=== PATIENT | male | born 1955 | race Asian ===

== ENCOUNTER 2024-05-11 14:11 | Inpatient (IN) | payer MEDICARE, OTHER ==
[~2024-05-11] VITALS: Ht 160 cm; Wt 68.3 kg
[2024-05-11] MEDS: LIDOCAINE 2% JELLY 11ml (GLYDO) ONE (14:30)
[2024-05-11] MEDS: LIDOCAINE 2% JELLY 11ml (GLYDO) UR ONE (14:30)
[2024-05-11 15:31] LABS: Basophils # (auto) 0 10 ^3/uL (0-0.2); Basophils % (auto) 0.5 % (0.0-2.0); Eosinophils # (auto) 0.1 10 ^3/uL (0-0.8); Hemoglobin 14.7 g/dL (13.5-17.5); Monocytes # (auto) 0.7 10 ^3/uL (0-1.3); Neutrophils # (auto) 8.1 10 ^3/uL (1.6-8.6); Nucleated Red Blood Cells % 0.1 %; White Blood Cell 9.9 10^3/uL (4.4-10.8)
[2024-05-11 15:33] LABS: Eosinophils % (auto) 0.6 % (0.0-7.0); Hematocrit 40.8 % (41.0-53.0); Lymphocytes % (auto) 9.8 % (10.0-50.0); Mean Corpuscular Hemoglobin 35.1 pg (28.0-32.0); Mean Corpuscular Hgb Conc. 36.1 g/dL (32.0-36.0); Mean Corpuscular Volume 97.3 fL (80.0-100.0); Monocytes % (auto) 7.3 % (0.0-12.0); Neutrophils % (auto) 81.8 % (37.0-80.0); Platelet Count (auto) 188 10^3/uL (140-450); Red Blood Cells 4.19 10^6/uL (4.5-5.90)
[2024-05-11 15:45] VITALS: PULSE 65; RESP 16; O2SAT 98
[2024-05-11] MEDS: ONDANSETRON HCL 4 MG/2 ML VIAL IV ONE (15:50)
[2024-05-11] MEDS: MORPHINE SULFATE 4 MG/ML SYR/VIAL IV ONE (15:51)
[2024-05-11 16:00] LABS: Alanine Aminotransferase 36 U/L (7-40); Albumin 4.2 g/dL (3.2-4.8); Alkaline Phosphatase 66 U/L (46-116); Anion Gap 8 (5-15); Aspartate Aminotransferase 28 U/L (13-40); BUN/Creatinine Ratio 11.9 (10.0-20.0); Blood Urea Nitrogen 13 mg/dL (9-23); Calcium 9.3 mg/dL (8.7-10.4); Carbon Dioxide 24 mmol/L (20-30); Chloride 106 mmol/L (98-107); Glucose 167 mg/dL (74-106); Lipase 45 U/L (12-53); Potassium 3.8 mmol/L (3.5-5.1); Sodium 138 mmol/L (136-145)
[2024-05-11 16:01] LABS: Bilirubin, Total 0.6 mg/dL (0.2-1.0); Total Protein 6.8 g/dL (5.7-8.2)
[2024-05-11] MEDS ORDERED: LEVOTAB51 PO (17:59)
[2024-05-11] MEDS ORDERED: PANT40T PO (17:59)
[2024-05-11] MEDS ORDERED: OLME20TA67 PO (17:59)
[2024-05-11] MEDS ORDERED: METF-1145 PO (17:59)
[2024-05-11] MEDS ORDERED: CYCL0.058 EACHEYE (17:59)
[2024-05-11] MEDS ORDERED: TRIO1TP TOP (17:59)
[2024-05-11] MEDS ORDERED: ATOR20TA50 PO (17:59)
[2024-05-11] MEDS ORDERED: FLUT50SP NAS (17:59)
[2024-05-11] MEDS ORDERED: KETOROLAC TROMETH 30 MG/ML 1ML VIAL IV PRN (18:00)
[2024-05-11] MEDS ORDERED: HYDROcodone-ACET 5/325MG TAB PO PRN (18:00)
[2024-05-11] MEDS ORDERED: ACETAMINOPHEN 325 MG TAB PO PRN (18:00)
[2024-05-11 19:05] LABS: Urine Bacteria None Seen /hpf (None Seen)
[2024-05-11 19:16] LABS: Urine Blood 1+ /uL (Negative); Urine Clarity Clear (Clear); Urine Color Light-Yellow (Yellow); Urine Mucus FEW (None Seen); Urine Protein, UAD TRACE (Negative); Urine Specific Gravity 1.021 (1.001-1.035); Urine Urobilinogen Normal (Negative); Urine WBC 6 /hpf (0 - 3)
[2024-05-11] MEDS: SODIUM CHLORIDE 0.9% 2,000 ML IV ONE (19:44)
[2024-05-11] MEDS: TAMSULOSIN HYDROCHLORIDE 0.4 MG CAP PO ONE (19:45)
[2024-05-11] MEDS: KETOROLAC TROMETH 30 MG/ML 1ML VIAL IV ONE (19:45)
[2024-05-11] MEDS: TAMSULOSIN HYDROCHLORIDE 0.4 MG CAP PO SCH (19:47)
[2024-05-11] MEDS: SODIUM CHLORIDE 0.9% 1,000 ML IV SCH (21:54)
[2024-05-11] MEDS: HEPARIN SODIUM (PORCINE) 5000 UNITS/ML 1ML VIAL SC SCH (22:11)
[2024-05-11 23:00] VITALS: BP 125/57; PULSE 65; RESP 17; TEMP 97.6; O2SAT 95
[2024-05-11 23:15] VITALS: RESP 17
[2024-05-12] VITALS (9 sets, daily range): BP systolic 116–148; BP diastolic 56–80; PULSE 65–80; RESP 15–18; TEMP 97.6–98.8; O2SAT 94–97
[2024-05-12 06:58] LABS: Basophils # (auto) 0 10 ^3/uL (0-0.2); Eosinophils # (auto) 0 10 ^3/uL (0-0.8); Lymphocytes # (auto) 0.6 10 ^3/uL (0.4-5.4); Mean Corpuscular Hemoglobin 34.7 pg (28.0-32.0); Monocytes # (auto) 0.8 10 ^3/uL (0-1.3)
[2024-05-12 07:00] LABS: Basophils % (auto) 0.3 % (0.0-2.0); Eosinophils % (auto) 0.3 % (0.0-7.0); Hemoglobin 13.8 g/dL (13.5-17.5); Lymphocytes % (auto) 7.6 % (10.0-50.0); Mean Corpuscular Hgb Conc. 35.5 g/dL (32.0-36.0); Mean Corpuscular Volume 97.6 fL (80.0-100.0); Monocytes % (auto) 10.4 % (0.0-12.0); Neutrophils # (auto) 6.3 10 ^3/uL (1.6-8.6); Neutrophils % (auto) 81.4 % (37.0-80.0); Platelet Count (auto) 173 10^3/uL (140-450); Red Blood Cells 3.99 10^6/uL (4.5-5.90); Red Cell Distribution Width 13.1 % (11.8-14.3); White Blood Cell 7.7 10^3/uL (4.4-10.8)
[2024-05-12 07:26] LABS: Alanine Aminotransferase 26 U/L (7-40); Albumin 3.6 g/dL (3.2-4.8); Alkaline Phosphatase 60 U/L (46-116); Anion Gap 9 (5-15); Aspartate Aminotransferase 23 U/L (13-40); BUN/Creatinine Ratio 10.5 (10.0-20.0); Bilirubin, Total 0.9 mg/dL (0.2-1.0); Blood Urea Nitrogen 14 mg/dL (9-23); Calcium 8.5 mg/dL (8.7-10.4); Carbon Dioxide 22 mmol/L (20-30); Chloride 109 mmol/L (98-107); Glucose 173 mg/dL (74-106); Potassium 3.8 mmol/L (3.5-5.1); Sodium 140 mmol/L (136-145)
[2024-05-12 07:27] LABS: Total Protein 5.7 g/dL (5.7-8.2)
[2024-05-12] MEDS: LEVOCETIRIZINE HYDROCHLORIDE 5 MG PO SCH (10:00)
[2024-05-12] MEDS: ATORVASTATIN 20 MG TAB PO SCH (10:28)
[2024-05-12] MEDS: LOSARTAN POTASSIUM 50 MG TAB PO SCH (10:28)
[2024-05-12] MEDS: PANTOPRAZOLE 40 MG TAB PO SCH (10:29)
[2024-05-12] MEDS: cefTRIAXone 1GM/50ML D5W 50 ML IV ONE (14:02)
[2024-05-12 16:57] LABS: Partial Thromboplastin Time 28.2 SEC (24.5-34.5); Prothrombin Time 10.6 sec (9.3-11.8)
[2024-05-12] MEDS: MANNITOL FTV 25% 12.5 GM/50 ML 50 ML IV ONE (20:54)
[2024-05-13] VITALS (8 sets, daily range): BP systolic 120–149; BP diastolic 60–70; PULSE 52–113; RESP 16–18; TEMP 97.7–98.2; O2SAT 94–97
[2024-05-13 07:39] LABS: Anion Gap 7 (5-15); Carbon Dioxide 25 mmol/L (20-30); Chloride 112 mmol/L (98-107); Sodium 144 mmol/L (136-145)
[2024-05-13 07:45] LABS: BUN/Creatinine Ratio 8.5 (10.0-20.0); Blood Urea Nitrogen 10 mg/dL (9-23); Glucose 140 mg/dL (74-106)
[2024-05-13] MEDS: cefTRIAXone 1GM/50ML D5W 50 ML IV SCH (10:42)
[2024-05-13] MEDS: MANNITOL FTV 25% 12.5 GM/50 ML 50 ML IV ONE (18:10)
[2024-05-14] VITALS (8 sets, daily range): BP systolic 122–142; BP diastolic 56–82; PULSE 65–76; RESP 16–20; TEMP 97.5–98.2; O2SAT 94–97
[2024-05-15] VITALS (9 sets, daily range): BP systolic 129–143; BP diastolic 65–86; PULSE 63–83; RESP 13–19; TEMP 97.7–98.7; O2SAT 95–100
[2024-05-15 11:44] LABS: Chloride 112 mmol/L (98-107); Potassium 3.8 mmol/L (3.5-5.1); Sodium 143 mmol/L (136-145)
[2024-05-15 11:45] LABS: Anion Gap 6 (5-15); Carbon Dioxide 25 mmol/L (20-31)
[2024-05-15 11:46] LABS: Calcium 9.1 mg/dL (8.7-10.4)
[2024-05-15 11:50] LABS: BUN/Creatinine Ratio 6.7 (10.0-20.0); Blood Urea Nitrogen 6 mg/dL (9-23); Glucose 126 mg/dL (74-106)
[2024-05-15] MEDS ORDERED: PROPOFOL 10 MG/ML 20 ML IV ONE (14:09)
[2024-05-15] MEDS ORDERED: ceFAZolin 2 GM/D5W100ml 100 ML IV ONE (14:49)
[2024-05-15] MEDS ORDERED: MIDAZOLAM HCL 2MG/2ML 2ml VIAL (1mg/ml) ONE (17:11)
[2024-05-15] MEDS ORDERED: fentaNYL CITRATE 100 MCG/2 ML VL ONE (17:11)
[2024-05-15] MEDS ORDERED: ONDANSETRON HCL 4 MG/2 ML VIAL ONE (17:12)
[2024-05-15] MEDS ORDERED: LIDOCAINE 2% (LOCAL ANESTH.) PF 5ml SDV ONE (17:12)
[2024-05-15] MEDS ORDERED: MANNITOL FTV 25% 12.5 GM/50 ML 50 ML IV ONE (17:45)
[2024-05-15] MEDS ORDERED: ONDANSETRON HCL 4 MG/2 ML VIAL IV ONE (18:00)
[2024-05-15] MEDS ORDERED: HYDROmorphone HCL 2 MG/ML VL/or syr IV PRN (18:00)
[2024-05-16 01:00] VITALS: BP 151/75; PULSE 80; RESP 18; TEMP 98.2; O2SAT 94
[2024-05-16 05:00] VITALS: BP 129/64; PULSE 75; RESP 20; TEMP 98.2; O2SAT 95
[2024-05-16 08:00] VITALS: PULSE 84; RESP 18; O2SAT 96
[2024-05-16 08:17] LABS: Chloride 110 mmol/L (98-107); Potassium 3.7 mmol/L (3.5-5.1); Sodium 144 mmol/L (136-145)
[2024-05-16 08:18] LABS: Anion Gap 8 (5-15); Carbon Dioxide 26 mmol/L (20-31)
[2024-05-16 08:19] LABS: Calcium 9.3 mg/dL (8.7-10.4)
[2024-05-16 08:21] LABS: Basophils # (auto) 0 10 ^3/uL (0-0.2); Basophils % (auto) 0.6 % (0.0-2.0); Eosinophils # (auto) 0.1 10 ^3/uL (0-0.8); Eosinophils % (auto) 1.2 % (0.0-7.0); Hemoglobin 13.2 g/dL (13.5-17.5); Lymphocytes # (auto) 0.6 10 ^3/uL (0.4-5.4); Mean Corpuscular Hemoglobin 34.9 pg (28.0-32.0); Mean Corpuscular Hgb Conc. 35.6 g/dL (32.0-36.0); Mean Corpuscular Volume 98.1 fL (80.0-100.0); Monocytes # (auto) 0.6 10 ^3/uL (0-1.3); Monocytes % (auto) 12.2 % (0.0-12.0); Neutrophils # (auto) 3.9 10 ^3/uL (1.6-8.6); Nucleated Red Blood Cells % 0.1 %; Platelet Count (auto) 174 10^3/uL (140-450); Red Blood Cells 3.78 10^6/uL (4.5-5.90); Red Cell Distribution Width 13.2 % (11.8-14.3); White Blood Cell 5.3 10^3/uL (4.4-10.8)
[2024-05-16 08:23] LABS: BUN/Creatinine Ratio 7.9 (10.0-20.0); Blood Urea Nitrogen 8 mg/dL (9-23)
[2024-05-16 08:29] LABS: Glucose 107 mg/dL (74-106)
[2024-05-16 09:00] VITALS: BP 134/68; PULSE 84; RESP 18; TEMP 97.9; O2SAT 96
[2024-05-16] MEDS ORDERED: CEFP200T15 PO (09:55)
[2024-05-16 12:23] VITALS: BP 134/68; PULSE 84; RESP 18; TEMP 97.9; O2SAT 96
[2024-05-16 13:00] VITALS: BP 153/83; PULSE 101; RESP 20; TEMP 97.4; O2SAT 93
== END 2024-05-16 14:10 | disposition home or self-care (01) | DRG 694 ==
LOC: ER 14:11 → OVERFLOW 17:58 → WEST WING 22:55
PROVIDERS: ADMIT Internal Medicine; ATTEND Internal Medicine
PROC: 0TF7XZZ Fragmentation in Left Ureter, External Approach (ICD-10-PCS; 2024-05-15)
PROC: 0TF4XZZ Fragmentation in Left Kidney Pelvis, External Approach (ICD-10-PCS; principal; 2024-05-15 17:06)
DX: N13.2 Hydronephrosis with renal and ureteral calculous obstruction (principal); K59.00 Constipation, unspecified; N17.9 Acute kidney failure, unspecified; E78.5 Hyperlipidemia, unspecified; R73.03 Prediabetes; R33.9 Retention of urine, unspecified; Z87.891 Personal history of nicotine dependence; Z79.84 Long term (current) use of oral hypoglycemic drugs; Z80.0 Family history of malignant neoplasm of digestive organs
CPT/HCPCS: 36415; 74018; 74176; 76775; 76856; 80048; 80053; 81001; 82306; 82607; 83036; 83690; 84443; 85025; 85610; 85730; 96361; 96374; 96375; G0378; J1885; J2001; J2250; J2405; J2704